=== PATIENT | female | born 2000 | race Caucasian/White ===

== ENCOUNTER 2022-02-01 00:33 | Emergency (ER) | payer OTHER ==
[~2022-02-01] VITALS: Ht 165.1 cm; Wt 45.4 kg
[2022-02-01 00:53] VITALS: BP_SYST 115
--- NOTE | 2022-02-01 00:57 | NUR ---
PATIENT STATES SHE HAS NAUSEA WITH SLIGHT STOMACH PAIN AND HEADACHE X 1 DAY WITH CHILLS AND BODY ACHES, NO OTHER SYMPTOMS.
--- NOTE | 2022-02-01 03:00 | NUR ---
CALLED TO ROOM, NO ANSWER
--- NOTE | 2022-02-01 03:14 | NUR ---
CALLED TO ROOM PATIENT, NO ANSWER.
--- NOTE | 2022-02-01 03:22 | NUR ---
THIRD CALL, NO ANSWER, PATIENT LEFT WITHOUT BEING SEEN.
== END 2022-02-01 03:32 | disposition left against medical advice (07) ==
LOC: SED 00:33
DX: R11.0 Nausea (principal); R10.9 Unspecified abdominal pain; R51.9 Headache, unspecified; Z53.21 Procedure and treatment not carried out due to patient leaving prior to being seen by health care provider